=== PATIENT | male | born 1995 | race African-American/Black ===

== ENCOUNTER 2022-06-29 16:41 | Emergency (ER) | payer OTHER, SELFPAY ==
--- NOTE | ~2022-06-29 | XR_ITS ---
EXAMINATION: XR chest 1V portable DATE: 06/29/2022 18:33 INDICATION: Cough, congestion and 2 weeks of fatigue TECHNIQUE: frontal view of the chest was obtained. COMPARISON: None FINDINGS: The lungs are clear with no focal airspace opacities, pulmonary edema, pleural effusion or pneumothor ax. The cardiomediastinal silhouette is normal. Visualized bones and soft tissues are unremarkable. IMPRESSION: 1. No acute cardiopulmonary disease. Reviewed, dictated and finalized at location A.
[2022-06-29 16:47] VITALS: BP 144/98; PULSE 129; RESP 18; TEMP 36.8; O2SAT 100
--- NOTE | 2022-06-29 18:07 | ED.URI ---
HPI - URI/Sore Throat General Chief Complaint: Upper Respiratory Infection <JAGJIT Piña Last Filed: 06/29/22 19:35> Stated Complaint: trouble breathing x 2 weeks <JAGJIT Piña Last Filed: 06/29/22 19:35> Time Seen by Provider: 06/29/22 17:57 <JAGJIT Piña Last Filed: 06/29/22 19:35> Source: patient <JAGJIT Piña Last Filed: 06/29/22 19:35> Mode of arrival: ambulatory <JAGJIT Piña Last Filed: 06/29/22 19:35> Limitations: no limitations <JAGJIT Piña Last Filed: 06/29/22 19:35> History of Present Illness HPI Narrative: Patient is a 27-year-old male who presents the ED with report of upper respiratory symptoms x2 weeks. Patient reports having mild cough, congestion, sinus pressure, runny nose, sore throat for the past 2 weeks. He states symptoms were mild at first, but became worse over the last couple days. He has been using [id number] cough and cold medications without relief. Patient denies any known fever. Does report occasional headache, myalgias. No sick contacts. Denies abdominal pain, chest pain, difficulty breathing, nausea, vomiting. <JAGJIT Piña Last Filed: 06/29/22 19:35> Related Data Allergies/Adverse Reactions: Allergies Allergy/AdvReac Type Severity Reaction Status Date / Time No Known Allergies Allergy Verified 06/29/22 16:49 <JAGJIT Piña Last Filed: 06/29/22 19:35> Review of Systems Review of Systems: CONSTITUTIONAL: Denies fever, chills, or sweats. ENT: Reports rhinorrhea, sinus pressure, congestion, sore throat. CARDIOVASCULAR: Denies chest pain. RESPIRATORY: Reports cough. Denies dyspnea. GASTROINTESTINAL: Denies abdominal pain, nausea, vomiting. MUSCULOSKELETAL: Reports myalgias. NEUROLOGIC: Reports occasional headache. <JAGJIT Piña Last Filed: 06/29/22 19:35> All systems reviewed & are unremarkable except as noted in HPI and below <Linette Garcia PA-C - Last Filed: 06/29/22 19:35> [facility] Past Medical History Medical History: Medical History (Updated 06/29/22 @ 19:35 by Linette Garcia PA-C) No pertinent past medical history <Linette Garcia PA-C - Last Filed: 06/29/22 19:35> Surgical History Surgical History: Surgical History (Updated 06/29/22 @ 18:41 by Linette Garcia PA-C) No pertinent past surgical history <Linette Garcia PA-C - Last Filed: 06/29/22 19:35> Social History Social History: Social History (Updated 06/29/22 @ 18:41 by Linette Garcia PA-C) Smoking status: Former smoker <Linette Garcia PA-C - Last Filed: 06/29/22 19:35> Exam Narrative: GENERAL: Well appearing, obese, non-toxic, in no acute distress. HEAD: Normocephalic, atraumatic. EYES: PERRL/EOMI, conjunctivae clear bilaterally. NOSE: Normal, no drainage. No significant maxillary sinus tenderness to palpation. THROAT: Pharynx clear. MMs moist. Minimal erythema to posterior pharynx. Minimal tonsillar hypertrophy, no kissing tonsils, no exudate. NECK: Supple. Small tender anterior cervical lymphadenopathy, no masses. RESPIRATORY: Airway patent, respirations nonlabored. Clear to auscultation bilaterally, no rales, rhonchi, wheezing. CARDIOVASCULAR: Regular rate and rhythm without murmurs, rubs, or gallops. Peripheral pulses 2+ and equal bilaterally. MUSCULOSKELETAL: Moves all extremities. Strength/ROM intact without gross deformities. SKIN: Warm, dry, normal color. No rashes. NEURO: A&O X3. Speech clear. Cranial nerves II-XII grossly intact. Steady gait. No ataxic movements. PSYCHIATRIC: Appropriate mood and affect. Normal interaction. <Linette Garcia PA-C - Last Filed: 06/29/22 19:35> Course MAINTENANCE CARPENTER/PA Physician Supervision For this patient encounter, I reviewed the MAINTENANCE CARPENTER or PA documentation, treatment plan, and medical decision making <To
--- NOTE | 2022-06-29 19:16 | PC.NURSE ---
Pt refusing blood test to be drawn at this time. Pt educated that the needle is small and would not stay in but about a minute and would give more results for the provider to assess pt's illness. Pt continued to decline at this time.
[2022-06-29 19:28] VITALS: BP 136/88; PULSE 85; RESP 20; TEMP 36.6; O2SAT 97
[2022-06-29 19:35] LABS: SARS-CoV-2 RNA PCR Positive
== END 2022-06-29 19:35 | disposition left against medical advice (07) ==
PROVIDERS: Physician Assistant; Emergency Provider Emergency Medicine
DX: J06.9 Acute upper respiratory infection, unspecified (principal); Z20.822 Contact with and (suspected) exposure to COVID-19; Z87.891 Personal history of nicotine dependence
CPT/HCPCS: 71045; 99283; C9803; U0003; U0005